=== PATIENT | male | born 1970 | race American Indian/Alaskan Native ===

== ENCOUNTER 2017-07-17 12:46 | Outpatient (CLI) | payer BC ==
--- NOTE | 2017-07-17 13:37 | XRay Report ---
XRAY BILATERAL KNEE THREE VIEWS EACH: 07/17/17 12:46:00 CLINICAL: Knee pain. FINDINGS: Right: Narrowing of the medial joint space but no osteophytes. Mild sella femoral joint space narrowing with tiny osteophyte. The rest of the joint spaces are normal. Small patellar enthesophyte in otherwise normal patella. No joint effusion. No fracture or dislocation. Normal soft tissues. Left: Mild narrowing of the medial joint space. The rest of the joint spaces are normal. Normal patella. No fracture or dislocation. Normal soft tissues. IMPRESSION: Mild bilateral arthritis.
== END 2017-07-17 12:47 | disposition home or self-care (01) ==
LOC: SPVIMAG 12:46
PROVIDERS: ATTEND Orthopaedic Surgery
DX: M17.0 Bilateral primary osteoarthritis of knee (principal)